=== PATIENT | female | born 1955 | race Two or more races ===

== ENCOUNTER 2025-03-07 17:49 | Inpatient (IN) | payer MEDICARE, OTHER ==
[~2025-03-07] VITALS: Ht 152.4 cm; Wt 52.3 kg
[2025-03-07 20:06] LABS: BASOPHILS # (AUTO) 0.1 K/UL (0.0-0.2); BASOPHILS % (AUTO) 0.7 % (0.0-2.0); EOSINOPHILS # (AUTO) 0.2 K/uL (0.0-0.7); EOSINOPHILS % (AUTO) 1.9 % (0.0-7.0); HEMATOCRIT 30.2 % (31.2-41.9); HEMOGLOBIN 9.8 g/dL (10.9-14.3); LYMPHOCYTES # (AUTO) 1.7 K/uL (0.8-4.8); LYMPHOCYTES % (AUTO) 20.4 % (20.5-51.5); MEAN CORPUSCULAR HEMOGLOBIN 30.8 uug (24.7-32.8); MEAN CORPUSCULAR HGB CONC 32 g/dL (32.3-35.6); MEAN CORPUSCULAR VOLUME 95.3 fL (75.5-95.3); MONOCYTES # (AUTO) 0.8 K/uL (0.1-1.30); MONOCYTES % (AUTO) 9.9 % (0.0-11.0); NEUTROPHILS # (AUTO) 5.6 K/uL (1.8-8.9); NEUTROPHILS % (AUTO) 67.1 % (38.5-71.5); PLATELET COUNT (AUTO) 247 K/uL (179-408); RED BLOOD CELL COUNT(AUTO) 3.17 MIL/uL (3.63-4.92); RED CELL DISTRIBUTION WIDTH 16.8 % (12.3-17.7); WHITE BLOOD COUNT (AUTO) 8.3 K/uL (3.8-11.8)
[2025-03-07 20:13] LABS: DIFFERENTIAL COMMENT 1
[2025-03-07 20:21] LABS: MAGNESIUM 2.5 mg/dL (1.8-2.4); PHOSPHOROUS 5.2 mg/dL (2.5-4.9)
[2025-03-07 20:23] LABS: ALANINE AMINOTRANSFERASE 11 U/L (14-59); ALBUMIN 2.7 g/dL (3.4-5.0); ALKALINE PHOSPHATASE 142 U/L (50-136); ASPARTATE AMINOTRANSFERASE 13 U/L (15-37); BILIRUBIN,DIRECT 0.1 mg/dL (0.0-0.2); BILIRUBIN,TOTAL 0.3 mg/dL (0.2-1.0); CALCIUM 8.4 mg/dL (8.5-10.1); CARBON DIOXIDE 24 mmol/L (21-32); CHLORIDE 105 mmol/L (98-107); CREATININE 4.1 mg/dL (0.6-1.3); GLUCOSE 101 mg/dL (74-106); LIPASE 41 U/L (16-77); SODIUM SERUM 139 mmol/L (136-145); TOTAL PROTEIN, SERUM 6.4 g/dL (6.4-8.2); UREA NITROGEN, BLOOD 70 mg/dL (7-18)
[2025-03-07 20:24] LABS: POTASSIUM 6.4 mmol/L (3.5-5.1)
[2025-03-07] MEDS ORDERED: INSULIN REGULAR, HUMAN 1000 UNIT/10 ML VIAL ONE (20:45)
[2025-03-07] MEDS ORDERED: SODIUM BICARBONATE 8.4% 50 MEQ/50 ML DISP.SYRIN IV ONE (20:47)
[2025-03-07] MEDS ORDERED: SODIUM POLYSTYRENE SULFONATE 15 G/60 ML LIQUID UDC ONE (20:47)
[2025-03-07] MEDS: INSULIN REGULAR, HUMAN 1000 UNIT/10 ML VIAL IV ONE (21:15)
[2025-03-07] MEDS: SODIUM BICARBONATE 8.4% 50 MEQ/50 ML DISP.SYRIN IV ONE (21:17)
[2025-03-07] MEDS: DEXTROSE 50% 50 ML DISP.SYRIN IV ONE ×2 (21:17→22:35)
[2025-03-07] MEDS: SODIUM POLYSTYRENE SULFONATE 15 G/60 ML LIQUID UDC PO ONE (21:17)
[2025-03-07] MEDS ORDERED: NIFE-35 PO (21:20)
[2025-03-07] MEDS ORDERED: SEVE800T8 PO (21:20)
[2025-03-07] MEDS ORDERED: SENN8.6T19 PO (21:20)
[2025-03-07] MEDS ORDERED: HYDR-894 PO (21:20)
[2025-03-07] MEDS ORDERED: ACET325T53 PO (21:20)
[2025-03-07] MEDS ORDERED: ERGO400C PO (21:20)
[2025-03-07] MEDS ORDERED: MAGN400O6 PO (21:20)
[2025-03-07] MEDS ORDERED: PANT20TA2 PO (21:20)
[2025-03-07] MEDS ORDERED: AMIN30LI2 PO (21:20)
[2025-03-07] MEDS ORDERED: CALC0.253 PO (21:20)
[2025-03-07] MEDS ORDERED: NA P133E RC (21:20)
[2025-03-07] MEDS ORDERED: MELA1TAB27 PO (21:20)
[2025-03-07] MEDS ORDERED: FOLI0.8T23 PO (21:20)
[2025-03-07] MEDS ORDERED: LOSA25TA3 PO (21:20)
[2025-03-07] MEDS ORDERED: FERR-68 PO (21:20)
[2025-03-07] MEDS ORDERED: ONDA-104 PO (21:20)
[2025-03-07] MEDS ORDERED: BISA10SU61 RC (21:20)
[2025-03-07] MEDS ORDERED: VANCOMYCIN IV 200 ML ONE (21:45)
[2025-03-07] MEDS: VANCOMYCIN IV 1,000 MG in IV DEXTROSE 5% 250 ML IV ONE (21:56)
[2025-03-07] MEDS ORDERED: DEXTROSE 50% 50 ML DISP.SYRIN ONE (22:33)
[2025-03-07] MEDS ORDERED: PIPERACILLIN/TAZOBACTAM/D5W 50 ML IV ONE (23:34)
[2025-03-07] MEDS: PIPERACILLIN SODIUM/TAZOBACTAM 3.375 G in IV DEXTROSE 5% 50 ML IV SCH (23:35)
[2025-03-08] MEDS ORDERED: SODIUM ZIRCONIUM CYCLOSILICATE 10 GM POWD.PACK ONE (00:09)
[2025-03-08] MEDS: SODIUM ZIRCONIUM CYCLOSILICATE 10 GM POWD.PACK PO ONE (00:14)
[2025-03-08] MEDS ORDERED: ONDANSETRON 4 MG/2 ML VIAL IV PRN (04:30)
[2025-03-08] MEDS ORDERED: ACETAMINOPHEN 325 MG TABLET PO PRN (04:30)
[2025-03-08] MEDS ORDERED: PIPERACILLIN/TAZO 2.25 G in IV DEXTROSE 5% 50 ML IV SCH (06:00)
[2025-03-08 06:50] LABS: BASOPHILS % (AUTO) 0.8 % (0.0-2.0); EOSINOPHILS # (AUTO) 0.1 K/uL (0.0-0.7); EOSINOPHILS % (AUTO) 1.8 % (0.0-7.0); HEMATOCRIT 33.1 % (31.2-41.9); HEMOGLOBIN 10.6 g/dL (10.9-14.3); LYMPHOCYTES % (AUTO) 19.6 % (20.5-51.5); MEAN CORPUSCULAR HEMOGLOBIN 31.2 uug (24.7-32.8); MEAN CORPUSCULAR HGB CONC 32 g/dL (32.3-35.6); MONOCYTES # (AUTO) 0.5 K/uL (0.1-1.30); MONOCYTES % (AUTO) 9.2 % (0.0-11.0); NEUTROPHILS # (AUTO) 3.7 K/uL (1.8-8.9); NEUTROPHILS % (AUTO) 68.6 % (38.5-71.5); PLATELET COUNT (AUTO) 209 K/uL (179-408); RED BLOOD CELL COUNT(AUTO) 3.41 MIL/uL (3.63-4.92); WHITE BLOOD COUNT (AUTO) 5.3 K/uL (3.8-11.8)
[2025-03-08 06:58] VITALS: BP 144/68; TEMP 97.8; O2SAT 100
[2025-03-08 07:01] LABS: CALCIUM 8.4 mg/dL (8.5-10.1); CARBON DIOXIDE 30 mmol/L (21-32); CHLORIDE 105 mmol/L (98-107); CREATININE 2.4 mg/dL (0.6-1.3); GLUCOSE 114 mg/dL (74-106); LIPASE 32 U/L (16-77); MAGNESIUM 2.3 mg/dL (1.8-2.4); PHOSPHOROUS 3.9 mg/dL (2.5-4.9); POTASSIUM 3.9 mmol/L (3.5-5.1); SODIUM SERUM 144 mmol/L (136-145); UREA NITROGEN, BLOOD 32 mg/dL (7-18)
[2025-03-08 07:02] LABS: DIFFERENTIAL COMMENT 1
[2025-03-08 08:00] VITALS: BP 176/68; TEMP 97.9; O2SAT 99
[2025-03-08] MEDS ORDERED: VANCOMYCIN IV 500 MG in IV DEXTROSE 5% 100 ML IV PRN (08:30)
[2025-03-08] MEDS: PIPERACILLIN/TAZO 2.25 G in IV DEXTROSE 5% 50 ML IV SCH (08:41)
[2025-03-08] MEDS: NIFEdipine XL 30 MG TABSR PO SCH (09:00)
[2025-03-08] MEDS: FERROUS SULFATE 325 MG TABEC PO SCH (09:00)
[2025-03-08] MEDS: FOLIC ACID/VITAMIN B COMP W-C TABLET PO SCH (09:00)
[2025-03-08] MEDS: CALCITRIOL 0.25 MCG CAPSULE PO SCH (09:00)
[2025-03-08] MEDS: LOSARTAN POTASSIUM 25 MG TABLET PO SCH (09:28)
[2025-03-08] MEDS ORDERED: Medication Not On Formulary EA (Sevelamer Carbonate (Renvela) 1 TAB) PO SCH (11:30)
[2025-03-08] MEDS: SEVELAMER CARBONATE 800 MG TABLET PO SCH (12:00)
[2025-03-08] MEDS: hydrALAZINE HCL 25 MG TABLET PO SCH (14:47)
[2025-03-08 16:45] VITALS: BP 127/41; TEMP 97.6; O2SAT 97
[2025-03-09 07:32] LABS: BASOPHILS # (AUTO) 0.1 K/UL (0.0-0.2); EOSINOPHILS # (AUTO) 0.2 K/uL (0.0-0.7); EOSINOPHILS % (AUTO) 2.9 % (0.0-7.0); HEMOGLOBIN 10.6 g/dL (10.9-14.3); LYMPHOCYTES % (AUTO) 17.5 % (20.5-51.5); MEAN CORPUSCULAR HEMOGLOBIN 31.5 uug (24.7-32.8); MEAN CORPUSCULAR HGB CONC 33 g/dL (32.3-35.6); MEAN CORPUSCULAR VOLUME 94.9 fL (75.5-95.3); MONOCYTES # (AUTO) 0.5 K/uL (0.1-1.30); MONOCYTES % (AUTO) 9.2 % (0.0-11.0); NEUTROPHILS # (AUTO) 4.1 K/uL (1.8-8.9); NEUTROPHILS % (AUTO) 69.4 % (38.5-71.5); PLATELET COUNT (AUTO) 227 K/uL (179-408); RED BLOOD CELL COUNT(AUTO) 3.37 MIL/uL (3.63-4.92); RED CELL DISTRIBUTION WIDTH 16.9 % (12.3-17.7)
[2025-03-09 07:45] LABS: DIFFERENTIAL COMMENT 1
[2025-03-09 07:51] LABS: CALCIUM 7.6 mg/dL (8.5-10.1); CARBON DIOXIDE 30 mmol/L (21-32); CHLORIDE 104 mmol/L (98-107); CREATININE 3.4 mg/dL (0.6-1.3); GLUCOSE 87 mg/dL (74-106); MAGNESIUM 2.2 mg/dL (1.8-2.4); PHOSPHOROUS 6.4 mg/dL (2.5-4.9); POTASSIUM 4.4 mmol/L (3.5-5.1); SODIUM SERUM 143 mmol/L (136-145); UREA NITROGEN, BLOOD 41 mg/dL (7-18)
[2025-03-09 08:06] VITALS: BP 165/42; TEMP 97.6; O2SAT 97
[2025-03-09 11:03] VITALS: BP 169/57; TEMP 98.2; O2SAT 100
[2025-03-09 11:30] VITALS: BP 169/57; TEMP 98.2; O2SAT 98
[2025-03-09 15:17] VITALS: BP 138/63; TEMP 98.6; O2SAT 100
[2025-03-09] MEDS: URSODIOL 300 MG CAPSULE PO SCH (17:30)
[2025-03-09 19:52] VITALS: BP_SYST 117; BP_SYST 134; BP_DIAS 45; BP_DIAS 54; TEMP 98.5; O2SAT 98
[2025-03-09] MEDS ORDERED: VANCOMYCIN IV 1,000 MG in IV DEXTROSE 5% 250 ML IV ONE (23:00)
[2025-03-10 04:45] VITALS: BP 136/52; TEMP 98.6; O2SAT 99
[2025-03-10 07:02] LABS: BASOPHILS % (AUTO) 0.8 % (0.0-2.0); EOSINOPHILS # (AUTO) 0.2 K/uL (0.0-0.7); EOSINOPHILS % (AUTO) 3.6 % (0.0-7.0); HEMATOCRIT 33.1 % (31.2-41.9); HEMOGLOBIN 10.9 g/dL (10.9-14.3); LYMPHOCYTES # (AUTO) 1.2 K/uL (0.8-4.8); LYMPHOCYTES % (AUTO) 20.4 % (20.5-51.5); MEAN CORPUSCULAR HEMOGLOBIN 31.1 uug (24.7-32.8); MEAN CORPUSCULAR HGB CONC 33 g/dL (32.3-35.6); MEAN CORPUSCULAR VOLUME 94.8 fL (75.5-95.3); MONOCYTES # (AUTO) 0.5 K/uL (0.1-1.30); MONOCYTES % (AUTO) 8.5 % (0.0-11.0); NEUTROPHILS % (AUTO) 66.7 % (38.5-71.5); PLATELET COUNT (AUTO) 223 K/uL (179-408); RED BLOOD CELL COUNT(AUTO) 3.49 MIL/uL (3.63-4.92); RED CELL DISTRIBUTION WIDTH 16.7 % (12.3-17.7)
[2025-03-10 07:10] LABS: DIFFERENTIAL COMMENT 1
[2025-03-10 07:18] LABS: ALANINE AMINOTRANSFERASE 10 U/L (14-59); ALBUMIN 2.6 g/dL (3.4-5.0); ALKALINE PHOSPHATASE 116 U/L (50-136); ASPARTATE AMINOTRANSFERASE 10 U/L (15-37); BILIRUBIN,TOTAL 0.4 mg/dL (0.2-1.0); CALCIUM 7.6 mg/dL (8.5-10.1); CARBON DIOXIDE 29 mmol/L (21-32); CHLORIDE 103 mmol/L (98-107); CREATININE 4.1 mg/dL (0.6-1.3); GLUCOSE 114 mg/dL (74-106); POTASSIUM 4.6 mmol/L (3.5-5.1); SODIUM SERUM 141 mmol/L (136-145); TOTAL PROTEIN, SERUM 6.3 g/dL (6.4-8.2); UREA NITROGEN, BLOOD 48 mg/dL (7-18)
[2025-03-10 10:48] VITALS: BP 134/48; TEMP 98.8; O2SAT 99
[2025-03-10 15:44] VITALS: BP 132/42; TEMP 99.2; O2SAT 98
[2025-03-10 19:59] VITALS: BP 121/44; TEMP 97.9; O2SAT 97
[2025-03-11] MEDS: VANCOMYCIN IV 1,000 MG in IV DEXTROSE 5% 250 ML IV ONE (01:30)
[2025-03-11] MEDS: PIPERACILLIN/TAZO 2.25 G in IV DEXTROSE 5% 50 ML IV SCH (04:30)
[2025-03-11 04:56] VITALS: BP 150/66; TEMP 97.6; O2SAT 98
[2025-03-11 10:57] VITALS: BP 100/42; TEMP 98.1; O2SAT 99
[2025-03-11 12:43] VITALS: BP 150/59
[2025-03-12 04:09] LABS: HEPATITIS B SURFACE AB, QUAL Non Reactive (.); HEPATITIS B SURFACE AG Confirm. indicated (Negative)
[2025-03-12 09:07] LABS: HEPATITIS B SURFACE AG CONF Positive (.)
== END 2025-03-11 14:30 | DRG 444 ==
LOC: ER 20:46 → TELE3 21:30 → MEDSURG3 03-09 09:25
PROVIDERS: ADMIT Nurse Practitioner Family; ATTEND Internal Medicine
PROC: 5A1D70Z Performance of Urinary Filtration, Intermittent, Less than 6 Hours Per Day (ICD-10-PCS; principal; 2025-03-10)
DX: K80.01 Calculus of gallbladder with acute cholecystitis with obstruction (principal); N18.6 End stage renal disease; I12.0 Hypertensive chronic kidney disease with stage 5 chronic kidney disease or end stage renal disease; N61.0 Mastitis without abscess; E87.5 Hyperkalemia; E11.22 Type 2 diabetes mellitus with diabetic chronic kidney disease; H54.8 Legal blindness, as defined in USA; D63.1 Anemia in chronic kidney disease; Z91.158 Patient's noncompliance with renal dialysis for other reason; N60.12 Diffuse cystic mastopathy of left breast; N60.11 Diffuse cystic mastopathy of right breast; Z99.2 Dependence on renal dialysis
CPT/HCPCS: 36415; 76641-TC; 78445; 83690; 83735; 84100; 84484; 85025; 86706; 87340; 93005; 93307; A9537; G0378; J1815; J2543; J3370; J3490; J7040; J7050

== ENCOUNTER 2025-07-09 09:28 | Inpatient (IN) | payer MEDICARE, OTHER ==
[~2025-07-09] VITALS: Ht 152.4 cm; Wt 54.0 kg
[~2025-07-09 09:28] MED LIST: ACET325T53 PO; AMIN30LI2 PO; BISA10SU61 RC; CALC0.253 PO; ERGO400C PO; FERR-68 PO; FOLI0.8T23 PO; HYDR-894 PO; LOSA25TA3 PO; MAGN400O6 PO; MELA1TAB27 PO; NA P133E RC; NIFE-35 PO; ONDA-104 PO; PANT20TA2 PO; SENN8.6T19 PO; SEVE800T8 PO
[2025-07-09 10:31] LABS: PLATELET COUNT (AUTO) 219 K/uL (179-408); RED CELL DISTRIBUTION WIDTH 16.3 % (12.3-17.7); WHITE BLOOD COUNT (AUTO) 7.5 K/uL (3.8-11.8)
[2025-07-09 10:33] LABS: RED BLOOD CELL COUNT(AUTO) 2.27 MIL/uL (3.63-4.92)
[2025-07-09 10:40] LABS: ASPARTATE AMINOTRANSFERASE 20 U/L (15-37); CREATININE 5.1 mg/dL (0.6-1.3); SODIUM SERUM 135 mmol/L (136-145); TOTAL PROTEIN, SERUM 7.3 g/dL (6.4-8.2)
[2025-07-09 11:16] LABS: UREA NITROGEN, BLOOD 99 mg/dL (7-18)
[2025-07-09] MEDS ORDERED: AMLO10TA59 PO (14:43)
[2025-07-09] MEDS ORDERED: LOSA50TA39 PO (14:44)
[2025-07-09] MEDS ORDERED: NIFE90TA61 PO (14:44)
[2025-07-09] MEDS ORDERED: PANT40TA49 PO (14:47)
[2025-07-09] MEDS ORDERED: DOCU-141 PO (14:48)
[2025-07-09 16:00] VITALS: BP 125/53
[2025-07-09 17:40] VITALS: BP 112/41; TEMP 98.8; O2SAT 98
[2025-07-09] MEDS ORDERED: DOCUSATE SODIUM 100 MG CAPSULE PO PRN (18:30)
[2025-07-09 19:00] VITALS: BP 123/60
[2025-07-09] MEDS ORDERED: TEMAZEPAM 15 MG CAPSULE PO PRN (19:30)
[2025-07-09] MEDS ORDERED: ONDANSETRON 4 MG/2 ML VIAL IV PRN (19:30)
[2025-07-09] MEDS: LOSARTAN POTASSIUM 50 MG TABLET PO SCH (21:00)
[2025-07-09] MEDS: diphenhydrAMINE 50 MG/1 ML VIAL IV PRN (23:01)
[2025-07-10] VITALS: BP 146/54; TEMP 98.4; O2SAT 99
[2025-07-10 04:00] VITALS: BP 115/47; TEMP 100; O2SAT 97
[2025-07-10 06:53] LABS: PLATELET COUNT (AUTO) 203 K/uL (179-408); RED CELL DISTRIBUTION WIDTH 16.4 % (12.3-17.7); WHITE BLOOD COUNT (AUTO) 5.4 K/uL (3.8-11.8)
[2025-07-10 07:10] LABS: RED BLOOD CELL COUNT(AUTO) 2.33 MIL/uL (3.63-4.92)
[2025-07-10 07:15] LABS: ASPARTATE AMINOTRANSFERASE 11 U/L (15-37); CREATININE 3.5 mg/dL (0.6-1.3); SODIUM SERUM 135 mmol/L (136-145); TOTAL PROTEIN, SERUM 7.1 g/dL (6.4-8.2); UREA NITROGEN, BLOOD 49 mg/dL (7-18)
[2025-07-10 07:48] LABS: IRON, SERUM 46 ug/dL (50-175)
[2025-07-10 08:00] VITALS: BP 121/53; TEMP 98.6; O2SAT 97
[2025-07-10] MEDS: PANTOPRAZOLE SODIUM 40 MG TABLET.DR PO SCH (09:38)
[2025-07-10] MEDS: FERROUS SULFATE 325 MG TABEC PO SCH (09:39)
[2025-07-10] MEDS: NIFEdipine XL 90 MG TABSR PO SCH (09:40)
[2025-07-10] MEDS: CALCITRIOL 0.25 MCG CAPSULE PO SCH (09:40)
[2025-07-10] MEDS: AMLODIPINE 10 MG TABLET PO SCH (09:40)
[2025-07-10 11:14] VITALS: BP 110/45; TEMP 98.2; O2SAT 100
[2025-07-10 14:39] VITALS: BP 119/56; TEMP 98.5; O2SAT 99
[2025-07-10 19:35] VITALS: BP 104/41; TEMP 98.9; O2SAT 96
[2025-07-11] MEDS: ACETAMINOPHEN 325 MG TABLET PO PRN (05:28)
[2025-07-11 06:35] LABS: PLATELET COUNT (AUTO) 211 K/uL (179-408); RED CELL DISTRIBUTION WIDTH 16.5 % (12.3-17.7); WHITE BLOOD COUNT (AUTO) 8.3 K/uL (3.8-11.8)
[2025-07-11 06:42] LABS: RED BLOOD CELL COUNT(AUTO) 2.33 MIL/uL (3.63-4.92)
[2025-07-11 06:51] LABS: CREATININE 5.4 mg/dL (0.6-1.3); SODIUM SERUM 131 mmol/L (136-145); UREA NITROGEN, BLOOD 71 mg/dL (7-18)
[2025-07-11 09:00] VITALS: BP 106/40; TEMP 98.5; O2SAT 92
[2025-07-11 11:17] VITALS: BP 105/47; TEMP 98; O2SAT 98
[2025-07-11 15:27] VITALS: BP 87/32; TEMP 98.9; O2SAT 96
[2025-07-11] MEDS: ALBUMIN HUMAN 25% 50 ML IV ONE (16:09)
[2025-07-11] MEDS: IV NORMAL SALINE 250 ML IV ONE (16:10)
[2025-07-11 16:14] VITALS: BP 96/32; TEMP 99.5; O2SAT 92
[2025-07-11 19:00] VITALS: BP 101/38; TEMP 98.4; O2SAT 96
[2025-07-11] MEDS: MIDODRINE HCL 5 MG TABLET PO ONE (21:01)
[2025-07-11] MEDS ORDERED: EPOETIN ALFA-EPBX 10,000 UNIT/ML VIAL ONE (21:56)
[2025-07-11] MEDS: EPOETIN ALFA 10,000 UNITS/ML VIAL SQ ONE (23:58)
[2025-07-12] VITALS (11 sets, daily range): BP systolic 105–130; BP diastolic 40–48; TEMP 97.6–100.5; O2SAT 95–100
[2025-07-12 00:10] LABS: HEPATITIS B SURFACE AB, QUAL Non Reactive (.); HEPATITIS B SURFACE AG Negative (Negative)
[2025-07-12] MEDS ORDERED: FAMOTIDINE. 20 MG/2 ML VIAL IV ONE (00:45)
[2025-07-12] MEDS: FAMOTIDINE. 20 MG/2 ML VIAL IV ONE (00:45)
[2025-07-12] MEDS: NEPRO (VANILLA) 237 ML CAN PO SCH (08:40)
[2025-07-12 11:55] LABS: PLATELET COUNT (AUTO) 207 K/uL (179-408); RED CELL DISTRIBUTION WIDTH 16.3 % (12.3-17.7); WHITE BLOOD COUNT (AUTO) 9.5 K/uL (3.8-11.8)
[2025-07-12 11:58] LABS: RED BLOOD CELL COUNT(AUTO) 2.21 MIL/uL (3.63-4.92)
[2025-07-13 00:19] LABS: *BILIRUBIN,URIN 1+ (NEGATIVE); *BLOOD, URINE NEGATIVE (NEGATIVE); *CLARITY,URINE SLIGHTLY CLOUDY (CLEAR); *COLOR,URINE YELLOW (YELLOW); *KETONES,URINE TRACE (NEGATIVE); *PROTEIN,URINE 3+ (NEGATIVE); *UROBILINOGEN,URINE 0.2 E.U./dl (NORMAL); LEUKOCYTE ESTERASE ,URINE 1+ (NEGATIVE); NITRITE, URINE NEGATIVE (NEGATIVE); UGLUCOSE NEGATIVE (NEGATIVE)
[2025-07-13 00:31] LABS: SQUAMOUS EPITHELIAL CELL,UR MANY /HPF (NONE SEEN)
[2025-07-13 00:41] LABS: COARSE GRANULAR CASTS,URINE 0-3 /LPF
[2025-07-13] MEDS: TEMAZEPAM 7.5 MG CAPSULE PO PRN (00:57)
[2025-07-13 05:46] VITALS: BP 148/40; TEMP 98.2; O2SAT 98
[2025-07-13 06:43] LABS: PLATELET COUNT (AUTO) 204 K/uL (179-408); RED BLOOD CELL COUNT(AUTO) 2.65 MIL/uL (3.63-4.92); RED CELL DISTRIBUTION WIDTH 16.6 % (12.3-17.7); WHITE BLOOD COUNT (AUTO) 7.7 K/uL (3.8-11.8)
[2025-07-13 07:06] LABS: ASPARTATE AMINOTRANSFERASE 13 U/L (15-37); CREATININE 5.4 mg/dL (0.6-1.3); SODIUM SERUM 141 mmol/L (136-145); TOTAL PROTEIN, SERUM 6.1 g/dL (6.4-8.2); UREA NITROGEN, BLOOD 63 mg/dL (7-18)
[2025-07-13 07:55] VITALS: BP 129/47; TEMP 97.6; O2SAT 98
[2025-07-13] MEDS: PANTOPRAZOLE SODIUM 40 MG TABLET.DR PO SCH (09:37)
[2025-07-13 10:59] VITALS: BP 127/75; TEMP 98.4; O2SAT 96
[2025-07-13 15:25] VITALS: BP 110/46; TEMP 98.4; O2SAT 96
[2025-07-13 19:49] VITALS: BP 145/50; TEMP 97.8; O2SAT 96
[2025-07-14 06:06] VITALS: BP 126/42; TEMP 98.7; O2SAT 97
[2025-07-14 11:42] VITALS: BP 123/42; TEMP 98.9; O2SAT 98
[2025-07-14 16:46] VITALS: BP 123/45; TEMP 98.4; O2SAT 99
[2025-07-14 19:25] VITALS: BP 132/50; TEMP 100.4; O2SAT 97
[2025-07-14 22:40] VITALS: BP 124/57; TEMP 98.4; O2SAT 99
[2025-07-15 06:20] VITALS: BP 126/46; TEMP 99; O2SAT 92
[2025-07-15 06:56] LABS: CREATININE 5.2 mg/dL (0.6-1.3); SODIUM SERUM 134 mmol/L (136-145); UREA NITROGEN, BLOOD 48 mg/dL (7-18)
[2025-07-15 06:57] LABS: PLATELET COUNT (AUTO) 231 K/uL (179-408); RED BLOOD CELL COUNT(AUTO) 2.56 MIL/uL (3.63-4.92); RED CELL DISTRIBUTION WIDTH 15.2 % (12.3-17.7); WHITE BLOOD COUNT (AUTO) 7.4 K/uL (3.8-11.8)
[2025-07-15] MEDS ORDERED: HYDR-500 PO (09:52)
[2025-07-15 12:03] VITALS: BP 128/46; TEMP 97.8; O2SAT 98
== END 2025-07-15 14:15 | DRG 682 ==
LOC: ER 09:54 → TELE3 16:39 → MEDSURG3 07-10 11:23
PROVIDERS: ADMIT Internal Medicine; ATTEND Internal Medicine
PROC: 5A1D70Z Performance of Urinary Filtration, Intermittent, Less than 6 Hours Per Day (ICD-10-PCS; principal; 2025-07-09)
PROC: 30233N1 Transfusion of Nonautologous Red Blood Cells into Peripheral Vein, Percutaneous Approach (ICD-10-PCS; 2025-07-12)
DX: I13.11 Hypertensive heart and chronic kidney disease without heart failure, with stage 5 chronic kidney disease, or end stage renal disease (principal); N18.6 End stage renal disease; D68.59 Other primary thrombophilia; D63.1 Anemia in chronic kidney disease; Z99.2 Dependence on renal dialysis; E87.5 Hyperkalemia; H54.8 Legal blindness, as defined in USA; Z74.09 Other reduced mobility; K21.9 Gastro-esophageal reflux disease without esophagitis; E11.22 Type 2 diabetes mellitus with diabetic chronic kidney disease; I44.0 Atrioventricular block, first degree; Z79.899 Other long term (current) drug therapy; Z90.710 Acquired absence of both cervix and uterus
CPT/HCPCS: 36415; 71045; 83550; 83605; 83735; 84100; 84443; 85018; 85025; 85610; 86706; 86850; 86900; 86901; 86920; 87086; 87340; A4606; A4663; G0378; J0696; J0885; J1200; J1308; J7040; P9016; P9047